=== PATIENT | female | born 1935 | race Caucasian/White ===

== ENCOUNTER 2020-11-01 11:40 | Emergency (ER) | payer OTHER ==
[~2020-11-01] VITALS: Ht 172.7 cm; Wt 63.5 kg
[2020-11-01] MEDS ORDERED: ZESTRIL40 M1 PO (12:02)
[2020-11-01] MEDS ORDERED: NAMENDA10 MG PO (12:02)
[2020-11-01] MEDS ORDERED: MEMANTINE HCL10 MG PO (12:03)
== END 2020-11-01 17:21 | disposition home or self-care (01) ==
LOC: ER 11:40
DX: R07.89 Other chest pain (principal); Z03.818 Encounter for observation for suspected exposure to other biological agents ruled out

== ENCOUNTER 2022-04-26 18:16 | Emergency (ER) | payer OTHER ==
[~2022-04-26] VITALS: Ht 165.1 cm; Wt 68.0 kg
[~2022-04-26 18:16] MED LIST: MEMANTINE HCL10 MG PO; NAMENDA10 MG PO; ZESTRIL40 M1 PO
== END 2022-04-26 22:21 | disposition home or self-care (01) ==
LOC: ER 18:16
DX: R51.9 Headache, unspecified (principal); I10 Essential (primary) hypertension